=== PATIENT | male | born 1955 | race Caucasian/White ===

== ENCOUNTER 2024-06-05 19:00 | Inpatient (IN) | payer OTHER ==
[~2024-06-05] VITALS: Ht 188 cm; Wt 88.3 kg
[2024-06-05 19:22] VITALS: BP 108/73
[2024-06-05] MEDS ORDERED: MULTIVITAMIN CONCENTRATE (IV) 10 ML,Thiamine 100 MG,FOLIC ACID 1 MG in SODIUM CHLORIDE ... IV ONE (19:45)
[2024-06-05 19:57] LABS: HEMATOCRIT 33.9 % (42.0-52.0); MEAN CELL VOLUME 90.6 fl (80.0-94.0); MEAN CORPUSCULAR HGB 30.5 pg (27.0-31.0); MEAN CORPUSCULAR HGB CONC 33.6 g/dl (33.0-37.0); MEAN PLATELET VOLUME 12.2 fl (9.6-12.3); PLATELET COUNT AUTOMATED 236 10*3/uL (130-400); RED BLOOD COUNT 3.74 10*6/uL (4.50-5.90); RED CELL DISTRI WIDTH 15.1 % (0-14.5); WHITE BLOOD COUNT 12.6 10*3/uL (4.8-10.8)
[2024-06-05 20:21] LABS: POTASSIUM 4.9 mmol/L (3.4-5.1); TOTAL PROTEIN 6.6 gm/dL (6.0-8.0)
[2024-06-05] MEDS ORDERED: ACETAMINOPHEN 325 MG TAB PO ONE (20:35)
[2024-06-05 20:57] LABS: MANUAL DIFF REFLEX YES
[2024-06-05 21:05] LABS: TOTAL CELLS COUNTED 100 #CELLS
[2024-06-05 21:06] LABS: BURR CELLS FEW; OVALOCYTES FEW; PLATELET SUFFICIENCY NORMAL (NORMAL); TOXIC GRANULATION SLIGHT
[2024-06-05] MEDS ORDERED: Ceftriaxone Sodium 1 GM/10 ML SYR IV ONE (22:00)
[2024-06-05] MEDS ORDERED: AZITHROMYCIN 250 ML IV ONE (22:00)
[2024-06-05] MEDS ORDERED: Magnesium Hydroxide 30 ML UDC PO PRN (23:15)
[2024-06-05] MEDS ORDERED: BISACODYL 5 MG TAB PO PRN (23:15)
[2024-06-05] MEDS ORDERED: ACETAMINOPHEN 650 MG SUPP R PRN (23:15)
[2024-06-05] MEDS ORDERED: TEMAZEPAM 15 MG CAP PO PRN (23:15)
[2024-06-05] MEDS ORDERED: BISACODYL 10 MG SUPP R PRN (23:15)
[2024-06-05] MEDS ORDERED: ACETAMINOPHEN 325 MG TAB PO PRN (23:15)
[2024-06-05] MEDS ORDERED: SODIUM CHLORIDE 0.9% 1,000 ML IV SCH (23:25)
[2024-06-06] VITALS (16 sets, daily range): BP systolic 76–116; BP diastolic 47–76
[2024-06-06] MEDS ORDERED: ATORVASTATIN CALCIUM 80 MG TAB PO SCH (00:15)
[2024-06-06] MEDS ORDERED: ASPIRIN 325 MG TAB PO ONE (00:15)
[2024-06-06] MEDS ORDERED: Metoprolol Tartrate 25 MG TAB PO SCH (00:15)
[2024-06-06] MEDS ORDERED: LISINOPRIL5 MG PO (00:56)
[2024-06-06] MEDS ORDERED: ALLOPURINOL100 MG PO (00:56)
[2024-06-06] MEDS ORDERED: FEBUXOSTAT40 MG PO (00:56)
[2024-06-06] MEDS ORDERED: LORazepam 1 MG TAB PO SCH (04:00)
[2024-06-06 05:11] LABS: BILIRUBIN Negative (Negative); BLOOD 3+ (Negative); CLARITY Clear (Clear); COLOR Yellow (Yellow); GLUCOSE Negative (Negative); KETONE Negative (Negative); LEUKO ESTERASE Negative (Negative); NITRITE Negative (Negative); PH 5.5 (4.5-8.0); UROBILINOGEN 0.2 E.U./dl (0.0-1.0)
[2024-06-06 05:17] LABS: URINE AMPHETAMINES Negative (1000ng/ml); URINE BARBITURATES Negative (200ng/ml); URINE BENZODIAZEPINES Negative (200ng/ml); URINE CANNABINOIDS (THC) Negative (50ng/ml); URINE COCAINE Negative (300ng/ml); URINE METHADONE Negative (300ng/ml); URINE OPIATES Negative (300ng/ml); URINE PHENCYCLIDINE Negative (25ng/ml)
[2024-06-06 05:18] LABS: URINE CREATININE RANDOM 138.27 mg/dL
[2024-06-06 05:41] LABS: FREE T4 0.9 ng/dl (0.89-1.76); POTASSIUM 4.7 mmol/L (3.4-5.1); TOTAL PROTEIN 6.3 gm/dL (6.0-8.0)
[2024-06-06 05:42] LABS: BACTERIA 1+; WBC 0-2 wbc/hpf (0-5)
[2024-06-06 05:47] LABS: VITAMIN D, 25-HYDROXY 40.3 ng/mL (30-100)
[2024-06-06] MEDS ORDERED: METRONIDAZOLE 100 ML IV SCH (06:00)
[2024-06-06] MEDS ORDERED: Pantoprazole Sodium 40 MG VIAL IV SCH (06:00)
[2024-06-06 06:25] LABS: MEAN CELL VOLUME 90.7 fl (80.0-94.0); MEAN CORPUSCULAR HGB 30.9 pg (27.0-31.0); MEAN CORPUSCULAR HGB CONC 34.1 g/dl (33.0-37.0); MEAN PLATELET VOLUME 11.4 fl (9.6-12.3); RED BLOOD COUNT 3.75 10*6/uL (4.50-5.90); RED CELL DISTRI WIDTH 15.1 % (0-14.5); WHITE BLOOD COUNT 10.9 10*3/uL (4.8-10.8)
[2024-06-06 06:36] LABS: MANUAL DIFF REFLEX YES; PLATELET COUNT AUTOMATED 144 10*3/uL (130-400)
[2024-06-06 07:15] LABS: POLYCHROMASIA SLIGHT; TOTAL CELLS COUNTED 100 #CELLS
[2024-06-06 07:16] LABS: BURR CELLS MODERATE; DOHLE BODIES FEW; PLATELET SUFFICIENCY NORMAL (NORMAL); ROULEAUX SLIGHT; SCHISTOCYTES FEW; TOXIC GRANULATION SLIGHT
[2024-06-06] MEDS ORDERED: Ceftriaxone Sodium 1 GM in SYRINGE INFUSION 10 ML IV SCH (10:00)
[2024-06-06] MEDS ORDERED: HEPARIN SODIUM 5,000 UNIT/ML VIAL SC SCH (10:00)
[2024-06-06] MEDS ORDERED: AZITHROMYCIN 250 ML IV SCH (10:00)
[2024-06-06] MEDS ORDERED: SODIUM CHLORIDE 0.9% 1,000 ML IV SCH (10:25)
[2024-06-06 14:12] LABS: POTASSIUM 4.5 mmol/L (3.4-5.1)
[2024-06-06] MEDS ORDERED: CALCIUM ACETATE 667 MG CAP PO SCH (17:00)
[2024-06-06] MEDS ORDERED: SODIUM BICARBONATE IV SCH (17:30)
[2024-06-06] MEDS ORDERED: [UNRECOGNIZED DRUG - OTHER] IV SCH (17:30)
[2024-06-06] MEDS ORDERED: DEXTROSE IV SCH (17:30)
[2024-06-06] MEDS ORDERED: SODIUM BICARBONATE 650 MG TAB PO SCH (18:00)
[2024-06-06] MEDS ORDERED: SODIUM CHLORIDE 0.9% 500 ML IV ONE (19:00)
[2024-06-06 22:43] LABS: POTASSIUM 4.7 mmol/L (3.4-5.1)
[2024-06-07] VITALS (9 sets, daily range): BP systolic 78–111; BP diastolic 46–77
[2024-06-07] MEDS ORDERED: LORazepam 1 MG TAB PO SCH
[2024-06-07 05:58] LABS: HEMATOCRIT 30.6 % (42.0-52.0); MEAN CELL VOLUME 87.9 fl (80.0-94.0); MEAN CORPUSCULAR HGB 30.7 pg (27.0-31.0); MEAN PLATELET VOLUME 11.7 fl (9.6-12.3); PLATELET COUNT AUTOMATED 145 10*3/uL (130-400); RED BLOOD COUNT 3.48 10*6/uL (4.50-5.90); RED CELL DISTRI WIDTH 15.3 % (0-14.5); WHITE BLOOD COUNT 10.3 10*3/uL (4.8-10.8)
[2024-06-07 06:35] LABS: MANUAL DIFF REFLEX YES
[2024-06-07 06:59] LABS: TOTAL CELLS COUNTED 100 #CELLS; TOXIC GRANULATION MODERATE
[2024-06-07 07:00] LABS: BURR CELLS MODERATE; PLATELET SUFFICIENCY NORMAL (NORMAL)
[2024-06-07 07:18] LABS: POTASSIUM 4.3 mmol/L (3.4-5.1); TOTAL PROTEIN 5.2 gm/dL (6.0-8.0)
[2024-06-07] MEDS ORDERED: NOREPINEPHRINE BITARTRATE/D5W 250 ML IV ONE (19:58)
[2024-06-07] MEDS ORDERED: SODIUM CHLORIDE 0.9% 500 ML IV ONE (20:00)
[2024-06-07] MEDS ORDERED: SODIUM CHLORIDE 0.9% 1,000 ML IV ONE (20:03)
[2024-06-08] VITALS (8 sets, daily range): BP systolic 88–112; BP diastolic 52–78
[2024-06-08] MEDS ORDERED: LORazepam 1 MG TAB PO PRN
[2024-06-08 06:05] LABS: HEMATOCRIT 28.5 % (42.0-52.0); MEAN CORPUSCULAR HGB 29.9 pg (27.0-31.0); MEAN PLATELET VOLUME 12.2 fl (9.6-12.3); PLATELET COUNT AUTOMATED 166 10*3/uL (130-400); RED BLOOD COUNT 3.24 10*6/uL (4.50-5.90); RED CELL DISTRI WIDTH 15.5 % (0-14.5); WHITE BLOOD COUNT 10.3 10*3/uL (4.8-10.8)
[2024-06-08 06:13] LABS: MANUAL DIFF REFLEX YES
[2024-06-08 06:17] LABS: POTASSIUM 3.7 mmol/L (3.4-5.1); TOTAL PROTEIN 5.1 gm/dL (6.0-8.0)
[2024-06-08 07:03] LABS: TOTAL CELLS COUNTED 100 #CELLS
[2024-06-08 07:04] LABS: ACANTHOCYTES FEW; BURR CELLS MODERATE; PLATELET SUFFICIENCY NORMAL (NORMAL); ROULEAUX SLIGHT; TOXIC GRANULATION MODERATE; VACUOLATION OF NEUTROPHILS SLIGHT
[2024-06-08] MEDS ORDERED: Cefepime Hydrochloride 1 GM in SODIUM CHLORIDE 0.9% 50 ML IV SCH (12:00)
[2024-06-08] MEDS ORDERED: SODIUM BICARBONATE 75 MEQ in SODIUM CHLORIDE 0.45% 1,000 ML IV SCH (14:20)
[2024-06-08] MEDS ORDERED: LINEZOLID 600 MG TAB PO SCH (18:00)
[2024-06-09] VITALS: BP 111/61
[2024-06-09 04:00] VITALS: BP 105/72
[2024-06-09 06:15] LABS: HEMATOCRIT 29.4 % (42.0-52.0); MEAN CELL VOLUME 88.8 fl (80.0-94.0); MEAN CORPUSCULAR HGB 30.2 pg (27.0-31.0); MEAN PLATELET VOLUME 11.5 fl (9.6-12.3); PLATELET COUNT AUTOMATED 204 10*3/uL (130-400); RED BLOOD COUNT 3.31 10*6/uL (4.50-5.90); RED CELL DISTRI WIDTH 15.6 % (0-14.5); WHITE BLOOD COUNT 8.8 10*3/uL (4.8-10.8)
[2024-06-09 06:41] LABS: MANUAL DIFF REFLEX YES
[2024-06-09 06:46] LABS: POTASSIUM 3.5 mmol/L (3.4-5.1)
[2024-06-09 07:13] LABS: PLATELET SUFFICIENCY NORMAL (NORMAL); TOTAL CELLS COUNTED 100 #CELLS
[2024-06-09 07:14] LABS: BURR CELLS FEW; TOXIC GRANULATION SLIGHT; VACUOLATION OF NEUTROPHILS SLIGHT
[2024-06-09 08:00] VITALS: BP 114/75
[2024-06-09] MEDS ORDERED: Doxycycline Hyclate 100 MG CAP PO SCH (10:00)
[2024-06-09 11:06] LABS: HBSAG Negative (Negative); HEP B CORE AB, IGM Negative (Negative); HEPATITIS C ANTIBODY Non Reactive (Non Reactive)
[2024-06-09 12:00] VITALS: BP 108/67
[2024-06-09] MEDS ORDERED: Albuterol Sulf/Ipratropium 3 ML VIAL NEB SCH (13:40)
[2024-06-09 16:00] VITALS: BP 107/68
[2024-06-09 20:00] VITALS: BP 113/72
[2024-06-10] VITALS: BP 112/67
[2024-06-10 04:00] VITALS: BP 115/77
[2024-06-10 05:33] LABS: POTASSIUM 3.2 mmol/L (3.4-5.1); TOTAL PROTEIN 5.1 gm/dL (6.0-8.0)
[2024-06-10 06:24] LABS: BASO % 0.1 % (0.0-1.0); EOS # 0.1 10*3/uL (0.0-0.4); HEMATOCRIT 29.5 % (42.0-52.0); LYMPH # 0.6 10*3/uL (1.3-4.4); LYMPH % 7.8 % (27.0-41.0); MEAN CELL VOLUME 87.5 fl (80.0-94.0); MEAN CORPUSCULAR HGB 30.3 pg (27.0-31.0); MEAN CORPUSCULAR HGB CONC 34.6 g/dl (33.0-37.0); MEAN PLATELET VOLUME 11.8 fl (9.6-12.3); MONO # 0.3 10*3/uL (0.1-1.0); MONO % 3.8 % (3.0-9.0); NEUT # 6.7 10*3/uL (2.3-7.9); NEUT % 85.8 % (47.0-73.0); RED BLOOD COUNT 3.37 10*6/uL (4.50-5.90); RED CELL DISTRI WIDTH 15.5 % (0-14.5); WHITE BLOOD COUNT 7.8 10*3/uL (4.8-10.8)
[2024-06-10 06:30] LABS: PLATELET COUNT AUTOMATED 270 10*3/uL (130-400)
[2024-06-10] MEDS ORDERED: POTASSIUM CHLORIDE 20 MEQ TAB PO ONE (07:10)
[2024-06-10 08:00] VITALS: BP 102/72
[2024-06-10 12:00] VITALS: BP 117/81
[2024-06-10 16:00] VITALS: BP 119/69
[2024-06-10 20:00] VITALS: BP 118/77
[2024-06-11] VITALS (12 sets, daily range): BP systolic 97–136; BP diastolic 56–83
[2024-06-11 05:27] LABS: POTASSIUM 3.4 mmol/L (3.4-5.1); TOTAL PROTEIN 5.2 gm/dL (6.0-8.0)
[2024-06-11 06:19] LABS: BASO % 0.3 % (0.0-1.0); EOS # 0.3 10*3/uL (0.0-0.4); EOS % 4.1 % (1.0-4.0); HEMATOCRIT 27.7 % (42.0-52.0); LYMPH # 0.8 10*3/uL (1.3-4.4); LYMPH % 10.9 % (27.0-41.0); MEAN CELL VOLUME 87.9 fl (80.0-94.0); MEAN CORPUSCULAR HGB 30.5 pg (27.0-31.0); MEAN CORPUSCULAR HGB CONC 34.7 g/dl (33.0-37.0); MONO # 0.4 10*3/uL (0.1-1.0); NEUT # 5.6 10*3/uL (2.3-7.9); NEUT % 76.9 % (47.0-73.0); RED BLOOD COUNT 3.15 10*6/uL (4.50-5.90); RED CELL DISTRI WIDTH 15.4 % (0-14.5); WHITE BLOOD COUNT 7.3 10*3/uL (4.8-10.8)
[2024-06-11 06:22] LABS: PLATELET COUNT AUTOMATED 361 10*3/uL (130-400)
[2024-06-11 06:24] LABS: ACT PARTIAL THROMBO TIME 38.4 SECONDS (20.0-32.1)
[2024-06-11] MEDS ORDERED: ALBUMIN 25% 50 ML IV PRN (18:15)
[2024-06-11] MEDS ORDERED: SODIUM CHLORIDE 0.9% 1,000 ML IV SCH (18:15)
[2024-06-11] MEDS ORDERED: MANNITOL 12.5 GM/50 ML VIAL IV SCH (18:15)
[2024-06-11] MEDS ORDERED: SODIUM CHLORIDE 23.4% 120 MEQ/30 ML VIAL IV SCH (18:15)
[2024-06-11 18:28] LABS: HEMATOCRIT 30.6 % (42.0-52.0)
[2024-06-12 04:00] VITALS: BP 124/84
[2024-06-12 05:38] LABS: POTASSIUM 3.4 mmol/L (3.4-5.1)
[2024-06-12] MEDS ORDERED: Pantoprazole Sodium 20 MG TAB PO SCH (06:00)
[2024-06-12 07:07] LABS: HEPATITIS B SURFACE AB Non Reactive (.); HEPATITIS B SURFACE AG Negative (Negative)
[2024-06-12 08:00] VITALS: BP 130/88
[2024-06-12] MEDS ORDERED: Albuterol Sulf/Ipratropium 3 ML VIAL NEB PRN (08:45)
[2024-06-12] MEDS ORDERED: SODIUM CHLORIDE 0.9% 1,000 ML (CHILLED) IVB IV ONE (09:03)
[2024-06-12] MEDS ORDERED: HEPARIN SODIUM 10,000 UN/10 ML VIAL IV ONE (09:03)
[2024-06-12 12:00] VITALS: BP 116/80
[2024-06-12 16:00] VITALS: BP 120/83
[2024-06-12] MEDS ORDERED: LINEZOLID600 MG PO (17:54)
[2024-06-12] MEDS ORDERED: VIBRAMYCIN100 MG PO (17:54)
[2024-06-12 20:00] VITALS: BP 132/87
[2024-06-13] VITALS: BP 131/88
[2024-06-13 05:38] LABS: POTASSIUM 4.2 mmol/L (3.4-5.1)
[2024-06-13 06:20] LABS: MEAN CELL VOLUME 94.6 fl (80.0-94.0); MEAN CORPUSCULAR HGB 29.7 pg (27.0-31.0); MEAN CORPUSCULAR HGB CONC 31.3 g/dl (33.0-37.0); MEAN PLATELET VOLUME 10.7 fl (9.6-12.3); PLATELET COUNT AUTOMATED 468 10*3/uL (130-400); RED BLOOD COUNT 3.17 10*6/uL (4.50-5.90); RED CELL DISTRI WIDTH 15.4 % (0-14.5); WHITE BLOOD COUNT 9.4 10*3/uL (4.8-10.8)
[2024-06-13 06:22] LABS: MANUAL DIFF REFLEX YES
[2024-06-13 07:06] LABS: BASOPHILS 2 % (0-1); POLYCHROMASIA SLIGHT; TOTAL CELLS COUNTED 100 #CELLS; TOXIC GRANULATION SLIGHT
[2024-06-13 07:07] LABS: OVALOCYTES FEW; PLATELET SUFFICIENCY HIGH (NORMAL); ROULEAUX SLIGHT; SCHISTOCYTES FEW
[2024-06-13 08:00] VITALS: BP 126/83
[2024-06-13 12:00] VITALS: BP 124/83
[2024-06-13 15:59] VITALS: BP 135/85
[2024-06-13 20:00] VITALS: BP 125/83
[2024-06-14] VITALS: BP 115/80
[2024-06-14 05:38] LABS: POTASSIUM 3.5 mmol/L (3.4-5.1)
[2024-06-14 06:14] LABS: BASO # 0.1 10*3/uL (0.0-0.1); BASO % 0.5 % (0.0-1.0); EOS # 0.4 10*3/uL (0.0-0.4); EOS % 3.8 % (1.0-4.0); HEMATOCRIT 30.2 % (42.0-52.0); LYMPH # 1.2 10*3/uL (1.3-4.4); LYMPH % 10.9 % (27.0-41.0); MEAN CELL VOLUME 91.8 fl (80.0-94.0); MEAN CORPUSCULAR HGB 30.4 pg (27.0-31.0); MEAN CORPUSCULAR HGB CONC 33.1 g/dl (33.0-37.0); MEAN PLATELET VOLUME 10.4 fl (9.6-12.3); MONO # 0.7 10*3/uL (0.1-1.0); MONO % 5.9 % (3.0-9.0); NEUT # 8.4 10*3/uL (2.3-7.9); NEUT % 76.7 % (47.0-73.0); PLATELET COUNT AUTOMATED 489 10*3/uL (130-400); RED BLOOD COUNT 3.29 10*6/uL (4.50-5.90)
[2024-06-14 08:00] VITALS: BP 130/85
[2024-06-14] MEDS ORDERED: SODIUM CHLORIDE 0.9% 1,000 ML BAG IV ONE (09:16)
[2024-06-14] MEDS ORDERED: HEPARIN SODIUM 10,000 UN/10 ML VIAL IV ONE (09:16)
[2024-06-14 12:00] VITALS: BP 137/90
[2024-06-14 16:00] VITALS: BP 108/73
[2024-06-14 20:00] VITALS: BP 104/70
[2024-06-15] VITALS: BP 114/75
[2024-06-15 05:51] LABS: POTASSIUM 4.1 mmol/L (3.4-5.1); TOTAL PROTEIN 5.6 gm/dL (6.0-8.0)
[2024-06-15 06:29] LABS: BASO % 0.3 % (0.0-1.0); EOS # 0.3 10*3/uL (0.0-0.4); EOS % 3.1 % (1.0-4.0); HEMATOCRIT 29.4 % (42.0-52.0); LYMPH # 1.4 10*3/uL (1.3-4.4); LYMPH % 14.1 % (27.0-41.0); MEAN CELL VOLUME 93.6 fl (80.0-94.0); MEAN CORPUSCULAR HGB 30.3 pg (27.0-31.0); MEAN CORPUSCULAR HGB CONC 32.3 g/dl (33.0-37.0); MEAN PLATELET VOLUME 10.2 fl (9.6-12.3); MONO # 0.6 10*3/uL (0.1-1.0); NEUT # 7.3 10*3/uL (2.3-7.9); NEUT % 74.4 % (47.0-73.0); PLATELET COUNT AUTOMATED 438 10*3/uL (130-400); RED BLOOD COUNT 3.14 10*6/uL (4.50-5.90); RED CELL DISTRI WIDTH 14.9 % (0-14.5); WHITE BLOOD COUNT 9.7 10*3/uL (4.8-10.8)
[2024-06-15 08:00] VITALS: BP 117/71
[2024-06-15] MEDS ORDERED: HEPARIN SODIUM 10,000 UN/10 ML VIAL IV ONE (08:13)
[2024-06-15] MEDS ORDERED: SODIUM CHLORIDE 0.9% 1,000 ML BAG IV ONE (08:13)
[2024-06-15] MEDS ORDERED: LINEZOLID600 MG PO (11:10)
[2024-06-15] MEDS ORDERED: VIBRAMYCIN100 MG PO (11:10)
[2024-06-15] MEDS ORDERED: ATORVASTATIN CA80 M1 PO (11:10)
== END 2024-06-15 11:51 | disposition home or self-care (01) | DRG 871 ==
LOC: ED 19:00 → EDHOLD 23:03 → ICCU 23:03 → EDHOLD 23:22 → ICCU 06-06 00:42
PROVIDERS: Emergency Medicine; Family Medicine; Internal Medicine; Internal Medicine Nephrology; Student in an Organized Health Care Education/Training Program; ADMIT Student in an Organized Health Care Education/Training Program; ATTEND Student in an Organized Health Care Education/Training Program
PROC: 0JH63XZ Insertion of Tunneled Vascular Access Device into Chest Subcutaneous Tissue and Fascia, Percutaneous Approach (ICD-10-PCS; principal; 2024-06-11)
PROC: 02H633Z Insertion of Infusion Device into Right Atrium, Percutaneous Approach (ICD-10-PCS; 2024-06-11)
PROC: 5A1D70Z Performance of Urinary Filtration, Intermittent, Less than 6 Hours Per Day (ICD-10-PCS; 2024-06-11)
PROC: 5A1D70Z Performance of Urinary Filtration, Intermittent, Less than 6 Hours Per Day (ICD-10-PCS; 2024-06-12)
PROC: 5A1D70Z Performance of Urinary Filtration, Intermittent, Less than 6 Hours Per Day (ICD-10-PCS; 2024-06-14)
DX: A41.9 Sepsis, unspecified organism (principal); G93.41 Metabolic encephalopathy; J69.0 Pneumonitis due to inhalation of food and vomit; N17.0 Acute kidney failure with tubular necrosis; E87.1 Hypo-osmolality and hyponatremia; I24.89 Other forms of acute ischemic heart disease; E44.0 Moderate protein-calorie malnutrition; A09 Infectious gastroenteritis and colitis, unspecified; N18.5 Chronic kidney disease, stage 5; E87.29 Other acidosis; I12.0 Hypertensive chronic kidney disease with stage 5 chronic kidney disease or end stage renal disease; Q61.3 Polycystic kidney, unspecified; R65.20 Severe sepsis without septic shock; J98.4 Other disorders of lung; E86.0 Dehydration; D64.9 Anemia, unspecified; R73.9 Hyperglycemia, unspecified; I95.9 Hypotension, unspecified; N40.1 Benign prostatic hyperplasia with lower urinary tract symptoms; M71.22 Synovial cyst of popliteal space [Baker], left knee; R33.8 Other retention of urine; E86.1 Hypovolemia; E55.9 Vitamin D deficiency, unspecified; E20.9 Hypoparathyroidism, unspecified; F10.10 Alcohol abuse, uncomplicated; Z98.890 Other specified postprocedural states; Z90.89 Acquired absence of other organs; Z79.899 Other long term (current) drug therapy; Z68.24 Body mass index [BMI] 24.0-24.9, adult